=== PATIENT | male | born 1970 | race Caucasian/White ===

== ENCOUNTER 2019-08-08 08:55 | Day surgery (SDC) | payer OTHER ==
[~2019-08-08] VITALS: Ht 180.3 cm; Wt 102.9 kg
[2019-08-08] VITALS (9 sets, daily range): BP systolic 126–147; BP diastolic 75–89
[~2019-08-08 08:55] MED LIST: CelecoXIB 400 MG CAP PO ONE; GABAPENTIN 300 MG CAP PO ONE; LIDOCAINE 1% MDV 20ML VIAL SQ PRN; LR 1,000 ML IV ONE; NAPR-885 PO; PERCOCET 5MG/325MG TAB PO ONE; PROAAER10 INH; VANCOMYCIN HCL 1,000 MG, VIAL MATE ADAPTER 1 EACH in D5W 250 ML IV ONE
[2019-08-08] MEDS ORDERED: ROCURONIUM BROMIDE 50 MG/5 ML VIAL As Ordered ONE ×2 (10:35→13:26)
[2019-08-08] MEDS ORDERED: LIDOCAINE 2% INJ 100 MG/5 ML SDV (FOR ANES.) As Ordered ONE (10:35)
[2019-08-08] MEDS ORDERED: PROPOFOL 200 MG/20 ML VIAL As Ordered ONE (10:35)
[2019-08-08] MEDS ORDERED: dexameTHASONE 4 MG/ML 1ML VIAL (J1100) As Ordered ONE (10:35)
[2019-08-08] MEDS ORDERED: ONDANSETRON 4MG/2ML VIAL (J2405) As Ordered ONE ×2 (10:35→15:29)
[2019-08-08] MEDS ORDERED: fentaNYL 250 MCG/5 ML INJECTION (J3010) As Ordered ONE (10:36)
[2019-08-08] MEDS ORDERED: MIDAZOLAM INJ 2 MG/2 ML VIAL (J2250) As Ordered ONE (10:36)
[2019-08-08] MEDS ORDERED: THROMBIN SOLN 20,000 UNITS KIT As Ordered ONE (12:35)
[2019-08-08] MEDS ORDERED: TRANEXAMIC ACID 100 MG/ML 10ML VIAL As Ordered ONE (12:35)
[2019-08-08] MEDS ORDERED: BUPIVACAINE LIPOSOME/PF 1.3% 20ML VIAL (13.3MG/ML)(EXPAREL)(C9290 PER1MG) As Ordered ONE (12:36)
[2019-08-08] MEDS ORDERED: EPINEPHrine INJ 1 MG/ML 1ML AMP As Ordered ONE (12:36)
[2019-08-08] MEDS ORDERED: BUPIVACAINE/EPIN 0.5% 30 ML VIAL As Ordered ONE (12:36)
[2019-08-08] MEDS ORDERED: BUPIVACAINE HCL 0.25% 10 ML VIAL As Ordered ONE (12:36)
[2019-08-08] MEDS ORDERED: BACITRACIN PWD 50,000 UNITS VIAL As Ordered ONE (12:37)
[2019-08-08] MEDS ORDERED: ACETAMINOPHEN 1000MG 100ML IV BTL (OFIRMEV) (J0131 PER 10MG) As Ordered ONE (13:54)
[2019-08-08] MEDS ORDERED: ePHEDrine SULFATE 25 MG/5 ML(5MG/ML) SYRINGE As Ordered ONE (14:06)
[2019-08-08] MEDS ORDERED: SUGAMMADEX SODIUM 500 MG/5 ML VIAL (BRIDION) As Ordered ONE (14:39)
[2019-08-08] MEDS ORDERED: oxyCODONE 5MG TAB As Ordered ONE (15:28)
[2019-08-08] MEDS ORDERED: fentaNYL 100 MCG/2 ML INJECTION (J3010) As Ordered ONE (15:29)
[2019-08-08] MEDS: fentaNYL 100 MCG/2 ML INJECTION (J3010) IV PRN ×4 (15:30→15:49)
[2019-08-08] MEDS: ONDANSETRON 4MG/2ML VIAL (J2405) IV PRN ×2 (15:30→15:48)
[2019-08-08] MEDS: oxyCODONE 5MG TAB PO PRN ×2 (15:30→16:00)
[2019-08-08] MEDS ORDERED: METOCLOPRAMIDE INJ 10MG/2ML VIAL (J2765) IV PRN (15:45)
[2019-08-08] MEDS ORDERED: MEPERIDINE INJ 25 MG/ML VIAL (J2175) IV PRN (15:45)
[2019-08-08] MEDS ORDERED: LR 1,000 ML IV SCH ×2 (15:45→16:46)
[2019-08-08] MEDS ORDERED: CYCLOBENZAPRINE 10 MG TAB PO PRN (16:00)
[2019-08-08] MEDS ORDERED: PERCOCET 5MG/325MG TAB PO PRN (16:46)
[2019-08-08] MEDS ORDERED: HYDROMORPHONE HCL 0.5 MG/ 0.5 ML SYRINGE (J1170 PER 1) IV PRN ×2 (16:46)
[2019-08-08] MEDS ORDERED: PROMETHAZINE INJ 25 MG/ML VIAL (J2550) IV PRN (16:46)
[2019-08-08] MEDS: GABAPENTIN 300 MG CAP PO SCH (20:11)
[2019-08-09] MEDS ORDERED: VANCOMYCIN HCL 1,000 MG, VIAL MATE ADAPTER 1 EACH in D5W 250 ML IV ONE ×3
[2019-08-09 02:00] VITALS: BP 130/88
[2019-08-09] MEDS: PERCOCET 5MG/325MG TAB PO PRN ×2 (02:48→10:13)
[2019-08-09 06:00] VITALS: BP 137/73
--- NOTE | 2019-08-09 07:23 | REP ---
Partial lumbar spine: Single view portably obtained. History: Left L5 HNP. Findings: A single portably obtained cross-table lateral view of the lumbar spine taken in the OR time stamped 01:47 p.m. demonstrates an intraoperative probe at the dorsal aspect of the spinal canal at the L5-S1 disc level. Electronically Signed by Kamron English MD 08/08/2019 02:14 P
[2019-08-09] MEDS: GABAPENTIN 300 MG CAP PO SCH (07:56)
[2019-08-09] MEDS ORDERED: CelecoXIB (CeleBREX) 100 MG CAP PO ONE (09:00)
[2019-08-09] MEDS ORDERED: METAMUCIL (PSYLLIUM) PACKET PO SCH (09:00)
--- NOTE | 2019-08-10 16:33 | RO ---
DATE OF PROCEDURE: 08/08/2019 PREOPERATIVE DIAGNOSIS: Herniated nucleus pulposus left L5-S1 producing left lumbar radiculopathy. POSTOPERATIVE DIAGNOSIS: Herniated nucleus pulposus left L5-S1 producing left lumbar radiculopathy. PROCEDURE PERFORMED: Microdiscectomy L5-S1 left. SURGEON: Dr. Guido Elise GUITAR TEACHER: Sharmin Combs ANESTHESIA: General. ESTIMATED BLOOD LOSS: Less than 40 mL, replaced with crystalloid. COMPLICATIONS: No complications. INDICATIONS: 49-year-old male with months of discomfort radiating down the left lower extremity, MRI evidence of a (cut off) on the left at L5-S1 who elects for operative intervention. Consent reviewed in detail with the patient, including a lisa discussion of the pathology involved, procedure proposed, alternatives including doing nothing, and risks including, but not limited to, pain, failure, infection, bleeding, blood loss, incomplete relief of symptoms, need for additional surgery, and other issues. Patient agrees to proceed. DESCRIPTION OF PROCEDURE: Identified in holding area. Site and side verified. Brought to the operating room. Once anesthesia administered, he was positioned in the prone position on the Carmelo frame for exposure of the lumbar spine. Axillary rolls were utilized. Knees were slightly flexed. Once I and the network systems analyst were comfortable with the patient's positioning, we began the operative procedure. Time-out was accomplished. Site of the incision was based on palpation of iliac crest over L5-S1. The incision was outlined with a marking pen, infiltrated with 0.25% Marcaine with epinephrine. Incision was made with a #10 blade, developed down through skin and subcuticular tissues to the posterior lumbar fascia. The incision was approximately 2.5 fingerbreadths long. Next, posterior lumbar fascia was opened with a #10 blade knife, developed along the posterior lamina of L5. A divot was drilled in the posterior lamina of L5, and a Pickens-Angel retractor was placed. A cross-table lateral x-ray was accomplished to verify position. Once L5 was verified, at this stage, my loupe magnification was removed. The operating microscope was sterilely draped and brought in for remaining portions of the procedure. Jimena Combs looked through the oculars on the right and I through the oculars on the left. Use of the scope facilitated safe use of the high-speed bur, which was utilized to implement a left unilateral laminotomy of L5 extending superiorly toward the bare area of L5. The facet complex was protected. Approximately 10% of the medial aspect of the L5 inferior facet was removed by the bur, and the top of the S1 lamina was also debrided with the bur. Ligamentum flavum was identified and removed using pituitaries as well curved curettes, exposing the thecal sac and the S1 nerve root. The S1 nerve root was noted to be elevated and deformed. Next, Pickens-Cheynes were utilized to sweep the S1 nerve root over the at L5-S1 on the left. Next, the disc bulge was held exposed by Ms. Combs using a suction Rochelle retractor. I opened the posterior annulus using a #11 blade under direct visualization. Bipolar cautery was utilized for hemostasis. Next, the pituitaries were utilized to remove friable disc material. This was sent to pathology. Pickens-Angel was utilized to probe for additional friable disc material. Foraminotomy was accomplished on the left. Next, no active bleeding was appreciated thrombin Gelfoam with bipolar cautery utilized. Next, irrigation was accomplished including irrigation with concentrated bacitracin. Next, once this was accomplished, the wound was inspected. No active bleeding. No cerebrospinal fluid (CSF) appreciated. Next, retractors were removed. Posterior lumbar fascia was reapproximated with interrupted stitch. Chris's fascia was reapproximated with interrupted stitch, deep dermis with interrupted stitch. Prineo dressing was applied. Exparel anesthetic solution had been instilled around the posterior fascia as well as the deep dermis for perioperative pain control. Prineo dressing was applied. The patient was log rolled to hospital bed, extubated, and moved to the recovery room in good condition, noted to be comfortable and conversing in the recovery room. Ms. Combs participated in the entirety of the case in the capacity of automotive parts counter assistant. For further details, please refer to medical record.
== END 2019-08-09 10:15 | disposition home or self-care (01) ==
LOC: M SDC 08:55 → M MS5PR 16:25 → M SDC 08-09 10:15
PROVIDERS: ATTEND Orthopaedic Surgery
DX: M51.26 Other intervertebral disc displacement, lumbar region (principal); J45.909 Unspecified asthma, uncomplicated; Z88.0 Allergy status to penicillin; Z79.51 Long term (current) use of inhaled steroids
CPT/HCPCS: 36415; 63030; 72100; 86850; 86900; 86901; 88304; 96361; 96365; C9290; J0131; J1100; J2250; J2405; J3010; J3370

== ENCOUNTER → 2020-10-14 | Outpatient (CLI) | payer BC ==
[~2020-10-14] MED LIST changes: -CelecoXIB 400 MG CAP PO ONE; -GABAPENTIN 300 MG CAP PO ONE; -LIDOCAINE 1% MDV 20ML VIAL SQ PRN; -LR 1,000 ML IV ONE; -PERCOCET 5MG/325MG TAB PO ONE; -VANCOMYCIN HCL 1,000 MG, VIAL MATE ADAPTER 1 EACH in D5W 250 ML IV ONE
--- NOTE | 2020-10-14 19:39 | REPVR ---
PROCEDURE INFORMATION: Exam: CT Maxillofacial Without Contrast, Sinus Exam date and time: 10/14/2020 6:18 PM Age: 50 years old Clinical indication: Chronic pansinusitis TECHNIQUE: Imaging protocol: CT Maxillofacial without contrast. Focus on the sinuses. Radiation optimization: All CT scans at this facility use at least one of these dose optimization techniques: automated exposure control; mA and/or kV adjustment per patient size (includes targeted exams where dose is matched to clinical indication); or iterative reconstruction. COMPARISON: No relevant prior studies available. FINDINGS: Frontal sinuses: Normal. No air-fluid levels. Ethmoid air cells: There is mild mucosal thickening in the ethmoid sinuses. No air-fluid levels. Sphenoid sinuses: There is mild mucosal thickening in the right sphenoid sinus. The left sphenoid sinus is clear. No air-fluid levels. Maxillary sinuses: There is moderate polypoid opacification predominantly involving the base of both maxillary sinuses. No air-fluid levels. There is mild opacification of the left ostiomeatal unit. The left infundibulum is bordered laterally by a small David air cell. The right ostiomeatal unit is patent. The right infundibulum is bordered laterally by orbit. Nasal cavity/Septum: There is an air cavity in the left middle turbinate (domingo bullosa). The nasal septum is mildly deviated. There is a 3 mm nasal septal spur projecting to the left of midline. Orbital cavity: The globes and orbits are intact and normal in appearance. Bones/joints: There is no fracture, dislocation, or bony destructive changes. The temporomandibular joints are unremarkable. Soft tissues: Unremarkable. No soft tissue fluid collection. Auditory system: There is a soft tissue opacity in the left external auditory canal, which likely represents cerumen. The middle ear spaces are clear. Mastoid air cells: Clear. Nasopharynx: Unremarkable. Oral Cavity: There is an 18 mm high density object in the oral cavity just above the anterior portion of the tongue (image 34 of the sagittal series 204), which should be able to be visualized on physical inspection. Dental: The left upper 2nd premolar and all of the wisdom teeth are absent. There are dental caries involving the left upper 1st molar. There is a residual or recurrent periapical abscess involving the left lower 1st molar where a root canal has been performed. Oropharynx: Unremarkable. No enlargement of the palatine tonsils. No tonsillar or peritonsillar abscess. IMPRESSION: 1. Moderate polypoid opacification of the maxillary sinuses. No air-fluid levels in the sinuses. 2. Dental caries involving the left upper 1st molar. 3. Residual or recurrent periapical abscess involving the left lower 1st molar where a root canal has been performed. Electronically signed by: Shaun Silva On 10/14/2020 19:38:40 PM
== END ==
LOC: M RAD 17:57
PROVIDERS: ATTEND Specialist
DX: J32.4 Chronic pansinusitis (principal)

== ENCOUNTER → 2020-12-25 | Outpatient (CLI) | payer BC ==
[~2020-12-25] MED LIST changes: +DOXY-350 PO; +PERCOCET PO
== END ==
LOC: M LABSMTC 10:10
PROVIDERS: ATTEND Anesthesiology
DX: Z01.812 Encounter for preprocedural laboratory examination (principal); Z20.822 Contact with and (suspected) exposure to COVID-19

== ENCOUNTER 2020-12-30 07:31 | Day surgery (SDC) | payer BC ==
[~2020-12-30] VITALS: Ht 180.3 cm; Wt 108.5 kg
[~2020-12-30 07:31] MED LIST changes: -DOXY-350 PO; +LR 1,000 ML IV ONE; -PERCOCET PO
[2020-12-30] MEDS ORDERED: DOXY-350 PO (08:52)
[2020-12-30] MEDS ORDERED: PERCOCET PO (08:53)
[2020-12-30] MEDS ORDERED: fentaNYL 100 MCG/2 ML INJECTION (J3010) As Ordered ONE (09:24)
[2020-12-30] MEDS ORDERED: SUGAMMADEX SODIUM 500 MG/5 ML VIAL (BRIDION) As Ordered ONE (09:24)
[2020-12-30] MEDS ORDERED: propofoL 200 MG/20 ML VIAL As Ordered ONE (09:24)
[2020-12-30] MEDS ORDERED: MIDAZOLAM INJ 2MG/2ML VIAL (J2250 PER 1MG) As Ordered ONE (09:24)
[2020-12-30] MEDS ORDERED: dexameTHASONE 4 MG/ML 1ML VIAL (J1100 PER 1MG) As Ordered ONE (09:24)
[2020-12-30] MEDS ORDERED: ROCURONIUM BROMIDE 50 MG/5 ML VIAL As Ordered ONE (09:24)
[2020-12-30] MEDS ORDERED: ONDANSETRON 4MG/2ML VIAL As Ordered ONE (09:24)
[2020-12-30] MEDS ORDERED: LIDOCAINE 2% 100MG/5ML SDV (FOR ANES.) As Ordered ONE ×2 (09:28→12:10)
[2020-12-30] MEDS ORDERED: EPINEPHrine INJ 1 MG/ML 1ML AMP As Ordered ONE ×2 (10:30→12:33)
[2020-12-30] MEDS ORDERED: LIDOCAINE W/EPINEPHRINE 1% 20ML VIAL As Ordered ONE (10:30)
[2020-12-30] MEDS ORDERED: OXYMETAZOLINE 0.05% NASAL SPRAY (AFRIN) As Ordered ONE (10:31)
[2020-12-30] MEDS ORDERED: METHYLENE BLUE 0.5% (5MG/ML) 10 ML AMP (PROVAYBLUE) As Ordered ONE (10:32)
[2020-12-30] MEDS ORDERED: ACETAMINOPHEN 1000MG 100ML IV BTL (OFIRMEV) (J0131 PER 10MG) As Ordered ONE (11:47)
[2020-12-30] MEDS ORDERED: ONDANSETRON 4MG/2ML VIAL IV PRN (13:30)
[2020-12-30] MEDS ORDERED: IBUPROFEN 800 MG TAB PO PRN (13:30)
[2020-12-30] MEDS ORDERED: fentaNYL 100 MCG/2 ML INJECTION (J3010) IV PRN (13:30)
[2020-12-30] MEDS ORDERED: LR 1,000 ML IV SCH (13:30)
[2020-12-30] MEDS ORDERED: PERCOCET 5MG/325MG TAB PO PRN (13:30)
[2020-12-30] MEDS ORDERED: oxyCODONE 5MG TAB PO PRN (13:30)
[2020-12-30 15:35] VITALS: BP 148/79
[2020-12-30] MEDS ORDERED: SODIUM CHLORIDE 0.9% INJ 10 ML SYR IV PRN (16:30)
--- NOTE | 2021-01-29 12:00 | RO ---
OPERATIVE NOTE DATE OF OPERATION: 12/30/2020 PREOPERATIVE DIAGNOSES: 1. Chronic sinusitis. 2. Bilateral nasal septal deviation. POSTOPERATIVE DIAGNOSIS: 1. Chronic sinusitis. 2. Bilateral nasal septal deviation. PROCEDURE: 1. Septoplasty. 2. Bilateral endoscopic ethmoidectomy and maxillary antrostomy. SURGEON: Jaden Yoon MD INDICATIONS: This is a 50-year-old that demonstrated CT scanning evidence of chronic mucosal thickening of the maxillary sinus and ostiomeatal complex with symptoms of post-nasal drainage and modest nasal obstruction that prevented him from undergoing dental surgery. DESCRIPTION OF PROCEDURE: Satisfactory general endotracheal anesthesia was administered. Pharyngeal pack was placed and the nose prepared for surgery by placing cotton soaked pledgets with Afrin solution to the nasal cavity bilaterally. Then, 1% Xylocaine with 1:100,000 epinephrine was used to inject the nasal septum. A Javid incision was made on the left side of the nose. A mucoperichondrial flap and envelope was created on the left side of the nasal septum and carried down to the junction of the bony and cartilaginous septum. This was then with an elevator, and an envelope was then created on the right side of the septum. Brock scissors were used to make a cut high in the perpendicular plate in the midportion of the vomer, and a central segment of the bony septum was resected. Next, with the round knife on the Silverio elevator, a strip of cartilage was resected from the floor of the nose, mobilizing the quadrilateral cartilage and creating a swinging door. Then, a central segment of the cartilaginous septum was resected, preserving a 1-cm dorsal and caudal strut. Double-action rongeur was used to take down deflected portions of the perpendicular plate, as well. Finally, the maxillary crest spur was taken down after elevating mucoperiosteum off both sides of it with a chisel. A segment of the resected cartilage was morselized and placed back into the septal envelop. The incision was closed using an interrupted #5-0 chromic suture. Then, a #4-0 plain suture was placed in a [id number] fashion through the two leaves of mucoperichondrium to appose them. After completing the septoplasty surgery, endoscopic surgery was started using the 0-degree telescope. Access to the middle meatus on both sides was relatively easy. The middle turbinates were preserved in the dissection that was to follow. First, the microdebrider was used as the primary instrument. With the microdebrider, the uncinate process was taken down superiorly to the inferior turbinate. Then, the ethmoidal bulla was visualized and this was resected away completely. The ground lamella was then perforated in the medial and inferior quadrants. Then, using the microdebrider, lamella bone and minimally hyperplastic inflamed mucosa was resected for the posterior ethmoid and then working anteriorly along the lamina papyracea just beneath the skull base. Lamellae bone was removed carefully. Anteriorly, the superior ethmoid cell was opened and the remnant uncinate process was resected. The middle turbinate was left undisturbed in this dissection. Maxillary sinus ostia were identified and were cannulated and enlarged using a combination of sidebiting and upbiting forceps. There was no significant bleeding in the dissection. There was no polyp disease and it was easy to control any oozing with adrenalin pledgets placed to the middle meatus on that side while surgery was performed on the right side. An identical procedure was performed on the right side. Again, middle turbinate was preserved with most of the dissection taking place in the anterior ethmoid cells and the maxillary antrostomy was enlarged on this side as well. Again, no polyp disease was found and no abnormalities of landmarks were encountered. Adrenalin pledgets were placed in this side and when these were removed, there was no significant discharge. NasoPore packing was placed into both sides of the nose. The pharyngeal pack was then removed and throat suctioned. The patient was awakened and extubated and sent to the recovery room in satisfactory condition. PLAN: He will be discharged to home on Tylenox for pain and doxycycline 100 mg b.i.d. He will be seen by me in the office in 3-4 days.
== END 2020-12-30 15:40 | disposition home or self-care (01) ==
LOC: M SDC 07:31
PROVIDERS: ATTEND Specialist
DX: J32.9 Chronic sinusitis, unspecified (principal); J34.2 Deviated nasal septum; M10.9 Gout, unspecified; G43.909 Migraine, unspecified, not intractable, without status migrainosus; M54.5 Low back pain; J45.909 Unspecified asthma, uncomplicated; Z79.51 Long term (current) use of inhaled steroids
CPT/HCPCS: 30520; 31255; 31267; 88300; 88305; J0131; J0171; J1100; J2250; J2405; J3010; Q9968

== ENCOUNTER → 2021-01-30 | Outpatient (REF) | payer BC ==
[~2021-01-30] MED LIST changes: +DOXY-350 PO; -LR 1,000 ML IV ONE; +PERCOCET PO
== END ==
LOC: M LAB REF 11:09
PROVIDERS: ATTEND Specialist
DX: J32.4 Chronic pansinusitis (principal)

== ENCOUNTER → 2021-02-11 | Outpatient (CLI) | payer BC ==
--- NOTE | 2021-02-11 11:12 | REPVR ---
PROCEDURE INFORMATION: Exam: CT Maxillofacial Without Contrast, Sinus Exam date and time: 02/11/2021 8:37 AM Age: 50 years old Clinical indication: Other: Other cranial cerebrospinal fluid leak TECHNIQUE: Imaging protocol: CT Maxillofacial without contrast. Focus on the sinuses. Radiation optimization: All CT scans at this facility use at least one of these dose optimization techniques: automated exposure control; mA and/or kV adjustment per patient size (includes targeted exams where dose is matched to clinical indication); or iterative reconstruction. COMPARISON: CT Maxilofacial w/out contrast 10/14/2020 6:24 PM FINDINGS: Limitations: Evaluation for a CSF leak is limited with this exam. Frontal sinuses: Normal. No air-fluid levels. Ethmoid air cells: Partial left ethmoidectomy surgery has been performed. There is moderate mucosal thickening throughout the bilateral ethmoid air cells. Sphenoid sinuses: There is moderate mucosal thickening in the sphenoid sinus, more pronounced on the left. There are no air-fluid levels. Maxillary sinuses: There is complete opacification of the right maxillary sinus. Marked mucosal thickening is present in the left maxillary sinus. Prior medial maxillary antrostomy surgery has been performed. Nasal cavity/Septum: There is mild rightward bowing of the anterior nasal septum. Orbital cavity: Orbits are normal. Globes are unremarkable. Bones/joints: There is a probable 4 mm defect within the left cribriform plate, just posterior to the gordon kian. This could be a source of a CSF leak. Soft tissues: Unremarkable. IMPRESSION: 1. Pansinusitis and postoperative changes as discussed above 2. Probable defect within the left cribriform plate which could be a source of a CSF leak. Electronically signed by: Alexander Santoro On 02/11/2021 11:11:59 AM
== END ==
LOC: M RAD 08:16
PROVIDERS: ATTEND Specialist
DX: G96.08 Other cranial cerebrospinal fluid leak (principal); J32.4 Chronic pansinusitis; J32.2 Chronic ethmoidal sinusitis